=== PATIENT | male | born 1930 | race Caucasian/White ===

== ENCOUNTER → 2017-12-08 | Outpatient (CLI) | payer MEDICARE ==
[~2017-12-08] MED LIST: GLIMEPIRIDE2 MG PO; IRBESARTAN150 MG PO; JANUMET XR 50-1 EAC1 PO; NITROGLYCERIN0.4 MG SL; PLAVIX75 MG PO; PROTONIX40 MG PO; Z.0.ALTACE10 MG PO; Z.0.ASPIRIN325 MG PO; Z.0.GLIPIZIDE5 MG PO; Z.0.TOPROL XL100 MG PO; Z.0.VYTORIN 10-201 E PO
--- NOTE | 2017-12-08 12:28 | Diagnostic Imaging Report ---
Exam: Head CT without contrast History: Previous stroke Comparison studies: Multiple prior head CTs which date to 11/17/2013, most recent of 09/04/2016. Brain MRI 11/26/2014. Technique: Axial images were obtained from the skull base to the vertex. Coronal and sagittal images reconstructed from the axial data. Intravenous contrast: None Findings: Scalp: No abnormalities. Bones: No fractures, blastic or lytic lesions. Brain sulci: Moderately prominent. Ventricles: Moderate compensatory dilatation. No hydrocephalus. Extra-axial spaces: No masses, no fluid collection. Parenchyma: No mass, acute hemorrhage or acute cortical vascular insults. There are small chronic lacunar infarcts in the right thalamus and right paramedian quin. A small chronic left thalamic lacunar infarct though not well visualized on the previous exam is visualized on the more remote exam of 11/25/2014 due to differences in slice selection between exams. A few scattered hypodensities in the supratentorial white matter are nonspecific but most compatible with chronic small vessel ischemic changes. Sellar/suprasellar region: No abnormalities. Craniocervical junction: Patent foramen magnum. No Chiari one malformation. Incidental findings: Atherosclerotic calcifications in the carotid siphons. Intraocular lens replacements related to previous cataract surgery. IMPRESSION: No changes from the previous CT of 09/04/2016. Chronic findings: 1. Moderate generalized volume loss. 2. 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 Signed by: Dr. Juan Pablo Samuel M.D. on 12/08/2017 12:24 PM
== END ==
LOC: CT 11:10
PROVIDERS: ATTEND Family Medicine
DX: I63.9 Cerebral infarction, unspecified (principal)
CPT/HCPCS: 70450